=== PATIENT | female | born 1990 | race Two or more races ===

== ENCOUNTER 2023-07-06 17:57 | Emergency (ER) | payer MEDICAID ==
[~2023-07-06] VITALS: Ht 170.2 cm; Wt 58.0 kg
[2023-07-06 19:16] LABS: BILIRUBIN,URINE NEGATIVE (Neg); CLARITY,URINE SLIGHTLY CLOUDY (Clear); COLOR,URINE YELLOW (Yellow); GLUCOSE, URINE 100 mg/dl (Neg); KETONES,URINE NEGATIVE (Neg); LEUKOCYTE ESTERASE ,URINE NEGATIVE (Neg); NITRITES, URINE NEGATIVE (Neg); OCCULT BLOOD,URINE MODERATE (Neg); PROTEIN,URINE NEGATIVE (Neg); UROBILINOGEN,URINE 0.2 E.U/dL (0.2-1.0)
[2023-07-06 19:21] LABS: UA COLLECTION TYPE CLN CATCH MIDSTREAM
[2023-07-06 19:24] LABS: MUCUS STRANDS MANY /LPF (Neg); SQUAMOUS EPITHELIAL CELL,UR MODERATE /LPF (FEW)
[2023-07-06 19:25] LABS: RBC,URINE 20-50 /HPF (0-2); WBC,URINE 0-4 /HPF (0-4)
[2023-07-06 19:26] LABS: BACTERIA,URINE 1+ /HPF (Neg)
[2023-07-06] MEDS: normal saline 1000ML IV soln IVB ONE ×2 (19:34→22:03)
[2023-07-06 20:29] LABS: BASOPHILS % (AUTO) 0.6 % (0-1); EOSINOPHILS # (AUTO) 0.1 X10'3 (0-0.9); EOSINOPHILS % (AUTO) 1.1 % (0-6); HEMATOCRIT 38.5 % (35.0-45.0); HEMOGLOBIN 12.8 g/dl (12.0-16.0); LYMPHOCYTES % (AUTO) 22.9 % (21-51); MEAN CORPUSCULAR HEMOGLOBIN 29.4 PG (27.0-31.0); MEAN CORPUSCULAR HGB CONC 33.1 g/dL (33.0-36.5); MEAN CORPUSCULAR VOLUME 88.6 FL (78-98); MEAN PLATELET VOLUME 7.9 FL (7.4-10.4); MONOCYTES # (AUTO) 0.8 X10'3 (0-0.9); NEUTROPHILS # (AUTO) 5.7 X10'3 (1.8-7.7); NEUTROPHILS % (AUTO) 66.4 % (42-75); PLATELET COUNT 332 X10'3 (140-440); RED BLOOD COUNT 4.35 X10'6 (4.20-5.60); RED CELL DISTRIBUTION WIDTH 12.8 % (11.5-14.5); WHITE BLOOD COUNT 8.6 X10'3 (4.5-11.0)
[2023-07-06 20:32] LABS: HCG SERUM QL NEGATIVE
[2023-07-06 20:38] LABS: ALBUMIN 3.6 G/DL (3.4-5.0); ANION GAP 11 (8-16); BLOOD UREA NITROGEN 12 MG/DL (7-18); BUN/CREATININE RATIO 15.6 (10.0-20.0); CALCIUM 8.3 MG/DL (8.5-10.1); CHLORIDE 107 MMOL/L (99-107); CREATININE 0.77 MG/DL (0.40-0.90); GLUCOSE 89 MG/DL (70-104); LIPASE 39 U/L (16-77); POTASSIUM 3.4 MMOL/L (3.5-5.1); SODIUM 142 MMOL/L (135-145); TOTAL CARBON DIOXIDE 24.5 MMOL/L (24-32); eCRCL 96 ML/MIN; eGFR 87 ML/MIN
[2023-07-06] MEDS ORDERED: ketorolac trometh. 30mg/ml inj. IV ONE (20:45)
[2023-07-06] MEDS: ondansetron/PF 4mg/2ml inj IV ONE (20:47)
[2023-07-06] MEDS: ketorolac tromethamine 15mg/ml inj. IV ONE ×2 (20:50→21:45)
[2023-07-06] MEDS: HYDROmorphone 1 mg/ml syringe IV ONE (21:45)
[2023-07-07 01:58] LABS: PRO BRAIN NATRIURETIC PEPTIDE 51 PG/ML (0-125)
[2023-07-07 02:30] VITALS: BP 94/63; PULSE 75; RESP 16; TEMP 98.2; O2SAT 99
== END 2023-07-07 02:31 | disposition home or self-care (01) ==
LOC: ER 17:58
DX: N20.0 Calculus of kidney (principal); Z91.014 Allergy to mammalian meats
CPT/HCPCS: 36415; 74176; 80048; 81001; 83690; 83735; 83880; 84703; 85025; 96374; 96375; 99285; J1885; J2405; J7030